=== PATIENT | female | born 1965 | race Caucasian/White ===

== ENCOUNTER 2020-09-10 11:50 | Emergency (ER) | payer OTHER, SELFPAY ==
--- NOTE | ~2020-09-10 | XR_ITS ---
EXAMINATION: XR ankle LT min 3V DATE: 09/10/2020 13:57 INDICATION: Left ankle fracture status post reduction TECHNIQUE: Three views of the left ankle were obtained. COMPARISON: 1220 hours FINDINGS: The previously described fractures of the distal tibia and fibula have been reduced. Alignm ent is near anatomic. There are approximately 3 mm of posterior displacement of the distal fibular fr acture fragment. A posterior splint has been applied. IMPRESSION: 1. Reduced and splinted fractures of the distal tibia and fibula in near-anatomic alignment. Reviewed, dictated and finalized at location A. IMPRESSION: 1. Reduced and splinted fractures of the distal tibia and fibula in near-anatom ic alignment.
--- NOTE | ~2020-09-10 | XR_ITS ---
EXAMINATION: XR ankle LT 2V DATE: 09/10/2020 12:19 INDICATION: Left ankle pain, initial encounter TECHNIQUE: Two views of the left ankle are obtained.. COMPARISON: None. FINDINGS: There is an acute, traumatic, closed, oblique fracture of the distal fibula which extends t o the level of the tibial plafond. There is an acute, traumatic, closed, transverse fracture of the m edial malleolus at the level of the tibial plafond. The distal fractures are laterally subluxed with respect to the tibia and fibula. Soft tissue swelling surrounds the fractures. IMPRESSION: 1. Acute fracture/subluxation of the distal fibula and medial malleolus. Reviewed, dictated and finalized at location A.
[2020-09-10 11:52] VITALS: PULSE 55; RESP 14; TEMP 36.8; O2SAT 98
--- NOTE | 2020-09-10 12:09 | ED.GENADULT ---
HPI - General Adult General Chief complaint: Extremity Injury, Lower Stated complaint: ankle deformity Time Seen by Provider: 09/10/20 11:54 Source: patient Mode of arrival: EMS Limitations: no limitations History of Present Illness HPI narrative: Patient presents for evaluation of left ankle pain. She indicates she fell down a few steps on her deck just prior to arrival when she missed a step. She denied her head or have loss of consciousness. No vomiting since episode. Not on blood thinners. She reports pain in the left ankle and has been unable to bear weight secondary to pain. She was brought in by EMS for further evaluation. She states that her pain is 20 on a scale of 1-10. She reports some tingling in all digits of the left foot but states that her sensation is intact. She was given morphine in route. Reports some nausea secondary to pain. Denies any other complaints whatsoever. Related Data Home Medications Medication Instructions Recorded Confirmed ergocalciferol (vitamin D2) 50 mcg 50 mcg PO DAILY 06/30/20 06/30/20 (2,000 unit) tablet Allergies Allergy/AdvReac Type Severity Reaction Status Date / Time No Known Allergies Allergy Unknown Verified 09/10/20 12:17 Review of Systems Review of Systems: Narrative: CONSTITUTIONAL: Denies fever, chills, or sweats. EYES: Denies visual changes, redness, or discharge. ENT: Denies rhinorrhea, congestion, sore throat, or otalgia. CARDIOVASCULAR: Denies chest pain, palpitations, or edema. RESPIRATORY: Denies cough or dyspnea. GASTROINTESTINAL: Denies abdominal pain, nausea, vomiting, or diarrhea. GENITOURINARY: Denies dysuria or hematuria. SKIN: Denies rash or itching. MUSCULOSKELETAL:Reports left ankle pain. Denies back pain or myalgia. NEUROLOGIC: Denies headache, numbness, dizziness, or weakness. PSYCHIATRIC: Denies anxiety or depression. [facility] Past Medical History Medical History (Updated 09/10/20 @ 14:18 by Tanner Flannery, RAFIA, ) Internal hemorrhoids Normal colonoscopy 2.05.06 internal hemmies/ diverticulosis Surgical History Surgical History History of appendectomy History of cholecystectomy Family History Family History Mother Diabetes mellitus Father Hypertension, Onset Age: 46 Family history of cardiovascular disease, Onset Age: 46 Other Family history of hypercholesterolemia Social History Social History (Updated 09/10/20 @ 12:10 by Tanner Flannery [facility], ) Smoking status: Never smoker Alcohol intake: current Alcohol use details: socially Substance use: never Living arrangements: with family Gender identity (if verbalized by the patient): Female Sexual Orientation (if Verbalized by the Patient): Straight or Heterosexual Spiritual care concerns: No Exam Narrative: Exam Narrative: GENERAL: Well-appearing, well-nourished, and in no acute distress. HEAD: Normocephalic, atraumatic. EYES: PERRLA and EOMI. ENT: Nares clear, no rhinorrhea or epistaxis. Mucous membranes moist. Oropharynx without tonsillar hypertrophy exudate or other lesions. Bilateral TMs pearly chang nonbulging NECK: Supple. No adenopathy or masses. No carotid bruits or JVD CHEST: Clear to auscultation. No respiratory distress. No wheezes rales or rhonchi HEART: Regular rate and rhythm. No murmur heard. Normal peripheral pulses. ABDOMEN: Soft, nontender, nondistended, normal active bowel sounds. EXTREMITIES: Swelling over left medial malleolus with deformity present. Tenderness noted circumferentially to the left ankle. Decreased dorsi and plantarflexion of the left foot. Sensation intact SKIN: Abrasion noted over left medial malleolus. Skin warm, dry, no rash. NEURO: No focal deficits. Alert and oriented x3. PSYCH: Normal mood and affect. Course Course Emergency Course: This is a 54 yr old femal
[2020-09-10] MEDS: ONDANSETRON HCL ODT 4 MG TABLET PO (12:16)
[2020-09-10] MEDS: oxyCODONE/ACETAMINOPHEN (*CRX) 5-325 MG TABLET 2 TABLET PO (12:16)
[2020-09-10 13:15] VITALS: BP 120/80; PULSE 66; RESP 15; O2SAT 95
[2020-09-10] MEDS: fentaNYL CITRATE INJ (*CRX) 100 MCG/2 ML VIAL 75 MCG IV PUSH (13:17)
[2020-09-10 14:36] VITALS: BP 124/63; PULSE 71; RESP 16; O2SAT 97
== END 2020-09-10 14:36 | disposition home or self-care (01) ==
PROVIDERS: Emergency Provider Nurse Practitioner; PCP Family Medicine
DX: S82.832A Other fracture of upper and lower end of left fibula, initial encounter for closed fracture (principal); S82.52XA Displaced fracture of medial malleolus of left tibia, initial encounter for closed fracture; W10.9XXA Fall (on) (from) unspecified stairs and steps, initial encounter
CPT/HCPCS: 27752; 27810; 73600; 73610; 96374; 99285; A9270; J3010

== ENCOUNTER → 2020-09-16 05:17 | Outpatient (CLI) | payer OTHER, SELFPAY ==
[2020-09-16 19:22] LABS: SARS-CoV-2 RNA PCR Negative
== END ==
PROVIDERS: PCP Family Medicine; Visit Provider Orthopaedic Surgery
DX: Z01.812 Encounter for preprocedural laboratory examination (principal); Z20.822 Contact with and (suspected) exposure to COVID-19
CPT/HCPCS: C9803; U0003; U0005

== ENCOUNTER 2020-09-16 09:28 | Outpatient (CLI) | payer OTHER, SELFPAY ==
--- NOTE | 2020-09-16 09:31 | ECG_ITS ---
Measurements Intervals [place] Rate: 89 P: 58 HI: 160 QRS: 22 QRSD: 69 T: 57 QT: 328 QTc: 401 Interpretive Statements SINUS RHYTHM LOW QRS VOLTAGE IN PRECORDIAL LEADS BORDERLINE T WAVE ABNORMALITY- ANTERIOR LEADS BASELINE ARTIFACT- II, III, AVF, V4-V6 BORDERLINE ECG Electronically Signed On 09-16-2020 9:45:29 CDT by Armin Steve D.O.
[2020-09-16 10:12] LABS: Anion Gap 7 mmol/L (8-16); Blood Urea Nitrogen 21 mg/dL (7-17); Calcium 10.1 mg/dL (8.4-10.2); Carbon Dioxide 29 mmol/L (22-30); Chloride 105 mmol/L (98-107); Estimated Glomerular Filt Rate > 60; Glucose 124 mg/dL (65-105); Potassium 4.6 mmol/L (3.4-5.0); Sodium 141 mmol/L (137-145)
== END 2020-09-16 09:29 | disposition home or self-care (01) ==
PROVIDERS: Anesthesiology; PCP Family Medicine; Visit Provider Orthopaedic Surgery
DX: Z01.818 Encounter for other preprocedural examination (principal); E78.2 Mixed hyperlipidemia; I10 Essential (primary) hypertension
CPT/HCPCS: 36415; 80048; 93005

== ENCOUNTER 2020-09-19 01:33 | Day surgery (SDC) | payer OTHER, SELFPAY ==
[2020-09-12 12:24] VITALS: BMI 25.0
[2020-09-19] VITALS (11 sets, daily range): BP systolic 133–168; BP diastolic 73–96; PULSE 70–89; RESP 11–20; TEMP 36.4–36.6; O2SAT 93–100
--- NOTE | ~2020-09-19 | XR_ITS ---
EXAMINATION: XR surgery orthopedic DATE: 09/19/2020 12:35 INDICATION: ORIF left ankle fracture TECHNIQUE: 3 fluoroscopic spot images of the left ankle were obtained during procedure performed by Bryanna Joy. Radiologist was not present for the imaging or procedure. The amount of fluoroscopy time used during this procedure was 0.1 minutes. COMPARISON: 09/10/2020 FINDINGS: Interval open reduction and internal fixation of the previous noted medial and lateral malleolar frac ture at the left ankle which is now in near-anatomic alignment with a congruent ankle mortise. The fi bular fractures fixed with an anterior to posteriorly directed interfragmentary screw and lateral judie te and screw fixation. The medial malleolar fractures fixed with a pair of cannulated lag screws. The medial malleolar fracture is mildly comminuted with a small fracture fragment along the anterior mar gin of the fracture which is not included within the fixation. Joint spaces at the left ankle and vis ualized hindfoot appear relatively preserved. IMPRESSION: 1. Near-anatomic alignment post open reduction and internal fixation of a left ankle bimalleolar frac ture. See procedure note for further detail. Reviewed, dictated and finalized at location B. IMPRESSION: 1. Near-anatomic alignment post open reduction and internal fixation of a left ankle bimalleolar fracture. See procedure note for further detail.
--- NOTE | 2020-09-19 07:01 | WPDHPUPDATE1 ---
History and Physical Update Update Date/Time: 09/19/20 07:01 History and Physical has been reviewed, including an updated exam of the patient. There are NO changes in the patient's condition. Covid test negative. Risks, benefits, and alternatives have been discussed and questions answered. Patient agrees to proceed with procedure.
--- NOTE | 2020-09-19 07:41 | WPDANESEPP ---
Anes - Eval Pre Procedure Procedure: Operation Date: 09/19/20 11:30 Proposed Procedures p Open Reduction Internal Fixation Left Ankle Fracture - Paulo Joy MD Date/Time: 09/19/20 07:41 Pre Op Diagnosis: left ankle fx Patient Data Age: 54 Gender: F Height: 1.57 m Weight: 62 kg Allergies Allergy/AdvReac Type Severity Reaction Status Date / Time No Known Allergies Allergy Unknown Verified 09/12/20 12:21 Home Medications Medication Instructions Recorded Confirmed Type levothyroxine 88 mcg tablet 88 mcg PO DAILY #90 tablet 03/21/20 09/12/20 Rx atorvastatin 10 mg tablet 10 mg PO DAILY #90 tablet 06/30/20 09/12/20 Rx cholecalciferol (vitamin D3) 2,000 mg PO DAILY 09/12/20 09/12/20 History metformin 1,000 mg PO DAILY 09/12/20 09/12/20 History metoprolol succinate 50 mg PO DAILY 09/12/20 09/12/20 History oxycodone-acetaminophen 5 mg-325 1 - 2 tablet PO Q6H PRN #20 tablet 09/12/20 09/12/20 Rx mg tablet Patient hx anesthesia problems: none Family hx anesthesia problems: none PMFSH Past Medical History Medical History Anxiety Claustrophobia High cholesterol Hypertension Internal hemorrhoids Normal colonoscopy 2.11.20 internal hemmies/ diverticulosis Trimalleolar fracture of left ankle Wears glasses Surgical History Surgical History History of appendectomy History of cholecystectomy Family History Family History Mother Diabetes mellitus Father Hypertension, Onset Age: 46 Family history of cardiovascular disease, Onset Age: 46 Other Arthritis Asthma Family history of hypercholesterolemia Heart disease Social History Social History Smoking status: Never smoker Alcohol intake: current Alcohol use details: 3-4 DRINKS/MONTH Substance use: never Substance use type: does not use Living arrangements: with family Gender identity (if verbalized by the patient): Female Spiritual care concerns: No Exam Day of Procedure 09/19/20 07:41
[2020-09-19] MEDS: LACTATED RINGERS 1,000 ML 30 ML IV CONT ×2 (10:20→14:19)
[2020-09-19] MEDS: KETOROLAC 15 MG/ML VIAL (*BKC) IV PUSH (10:26)
[2020-09-19 10:28] LABS: Glucose Point of Care 144 (65-105)
--- NOTE | 2020-09-19 11:19 | P.PNAN_ITS ---
Anes - Eval Final PreProcedure Day of Procedure 09/19/20 11:19 Patient weight: normal Heart: regular rate and rhythm Lungs: clear to auscultation Airway: Mallampati scale class III Neurological: alert and oriented Last oral intake: >/= 8 hours ASA classification: II Emergent: no Anesthetic plan: proceed Anesthesia type and monitoring: general LMA and standard monitoring Informed Consent: The patient's anesthetic plan and its attendant risks and b enefits were discussed with the patient/family/POA. Questions were solicited and answers provided to the satisfaction of the patient/family/POA.
[2020-09-19] MEDS: ceFAZolin 2 GM/D5W 50 ML 2 GM/50 ML BAG IVPB (11:28)
[2020-09-19] MEDS: BUPIVACAINE/EPINEPHRINE 0.5% 30 ML VIAL INFILTRATE (12:22)
[2020-09-19 13:13] LABS: Glucose Point of Care 135 (65-105)
--- NOTE | 2020-09-19 13:31 | PM.PROC ---
Procedure Note - Detailed Date of procedure: 09/19/20 Pre-op diagnosis: left ankle fx Left ankle trimalleolar fracture Post-op diagnosis: same Procedure performed: Open reduction internal fixation left ankle trimalleolar fracture. Description of procedure: Operative indications: Patient is a 54 year-old woman who sustained an injury to the ankle. Radiographs show distal fibular fracture with displacement. Medial malleolus fracture with displacement and posterior malleolus fracture. Widening of the ankle mortise noted. Patient presents for operative treatment. Full discussion of the risks, benefits and alternatives of surgery was had with the patient. Questions answered. Patient verbalizes understanding and wishes to proceed. What was done: After informed consent, the operative extremity was marked in the preoperative holding area. Patient received intravenous antibiotics. Patient was then taken to the operating room and underwent general anesthesia by the anesthesia team. Positioned supine on the operating room table with a soft bump under the ipsilateral hip. A time-out was performed confirming the patient, site of the surgery, operative plan. Lower extremity then prepped and draped in the usual sterile surgical fashion using ChloraPrep skin solution. Foot and ankle exsanguinated and a thigh tourniquet inflated to 250 mmHg. Longitudinal incision made over the lateral ankle distal fibula with a 15 blade knife. Hemostasis controlled with electrocautery. Full-thickness soft tissue flaps developed and the fascia was incised in line with the skin incision. Fracture identified and cleared with a dental pick, irrigation and rongeur. Fracture reduced and held with bone-holding clamp. Image intensification confirmed reduction of the fracture and the ankle mortise. Fixation achieved with a 2.7 millimeter fully-threaded cortical screw placed in lag technique across the fracture. Neutralization with a lateral fibula plate with unicortical locking screws distal to fracture and bicortical screws proximal to the fracture. Good alignment and stability of the fracture noted. Image intensification used to confirm reduction of the fracture and placement of the hardware. Medial side then addressed. Longitudinal incision made with a 15 blade knife over the medial malleolus fracture. Hemostasis controlled with electrocautery. Fascia incised in line with skin incision. Periosteum cleared from the medial malleolus fracture. Medial side of the joint inspected and noted to have mild amount of trauma to the chondral surface. Thorough irrigation of the ankle joint and suctioned out. Fracture reduced and provisionally pinned. Fixation achieved with 4.0 mm partially threaded cancellous screws x2 placed in cannulated screw fashion. Image intensification confirmed reduction of the fracture and placement of the hardware. Stress of the ankle performed with good stability of the ankle mortise in all directions. Posterior malleolus noted to be reduced and stable. Wounds thoroughly irrigated with antibiotic solution. Fascia repaired with 00 Vicryl interrupted suture. Subcutaneous tissue repaired with 000 Monocryl interrupted suture and Skin approximated with jason. Sterile dressings applied followed by bulky dressing and splint. Patient awoken from anesthesia, extubated and taken to the recovery room in stable condition. All sponge, needle and instrument counts correct at the end of the case. Palpable dorsalis pedis pulse noted prior to dressing. Implants: Arthrex distal fibula locking fracture plate with screws, 4.0 mm cannulated screw x2 medially Anesthesia: GLMA Surgeon: Paulo Joy MD Parking Enforcement Technician: 1st marketing operations assistant Estimated blood loss (mL): 10 Tourniquet time (min): 60 Drains: No Packing: No Pathology: none sent Complications: None Condition: stable Disposition: PACU
--- NOTE | 2020-09-19 13:41 | SUR.PHASEI ---
1340- PEG drain emptied of 50 ml of bloody drainage.
[2020-09-19] MEDS: fentaNYL CITRATE INJ (*CRX) 100 MCG/2 ML VIAL 25 MCG IV PUSH ×5 (13:46→15:21)
--- NOTE | 2020-09-19 14:31 | SUR.PHASEI ---
1430- PEG drain inforation charted on wrong patient.
[2020-09-19] MEDS: oxyCODONE HCL (*CRX) 5 MG TAB IR PO (15:39)
== END 2020-09-19 16:15 | disposition home or self-care (01) ==
PROVIDERS: PCP Family Medicine; Visit Provider Orthopaedic Surgery
PROC: (CPT 27822; principal; 2020-09-19 11:30)
DX: S82.852A Displaced trimalleolar fracture of left lower leg, initial encounter for closed fracture (principal); W10.9XXA Fall (on) (from) unspecified stairs and steps, initial encounter; F41.9 Anxiety disorder, unspecified; E78.00 Pure hypercholesterolemia, unspecified; I10 Essential (primary) hypertension; Z79.84 Long term (current) use of oral hypoglycemic drugs; E03.9 Hypothyroidism, unspecified
CPT/HCPCS: 27822; 36415; 80048; 93005; A9270; C1713; C1769; C9803; J0690; J1100; J1885; J2250; J2405; J2704; J3010; J7120; U0003; U0005

== ENCOUNTER 2023-11-08 08:25 | Outpatient (CLI) | payer OTHER, SELFPAY ==
--- NOTE | ~2023-11-08 | DEXA_ITS ---
Bone Density Report Name: SHANON UGALDE Age: 58 Sex: Female Ethnicity: White Date of : 1965 Indication: postmenopausal; screening for osteoporosis; Referring Provider: BRYN MUSTAFA Study: Bone densitometry was performed. Exam Date: November 08, 2023 Accession number: [id number] Bone Density: Region BMD T-score Z-score Classification AP Spine(L1-L4) 0.936 -1.0 0.4 Normal Femoral Neck (Left) 0.745 -0.9 0.3 Normal Total Hip (Left) 0.902 -0.3 0.6 Normal Femoral Neck (Right) 0.737 -1.0 0.3 Normal Total Hip (Right) 0.883 -0.5 0.5 Normal Total Hip Mean 0.893 -0.4 0.6 Normal World Health Organization criteria for BMD impression classify patients as: Normal (T-score at or above -1.0), Osteopenia (T-score between -1.0 and -2.5), or Osteoporosis (T-score at or below -2.5). 10-year Fracture Risk: FRAX not reported because: All T-scores for Spine Total, Hip Total, Femoral Neck at or above -1.0 Clinical Information Provided by Patient: Has used the following medications: Vitamin D Patient maximum height was 62 Menopause Age: 48 No regular weight bearing exercise Does not regularly consume dairy products Drinks caffeinated beverages Onset of menses at age 11 Number of children 2 Impression: The patient has normal bone mass. Discussion: BONE DENSITY IS ABOVE THE MINIMUM DESIRABLE LEVEL AT ALL SKELETAL SITES TESTED. This patient?s bone mineral density is above the minimum desirable level (T-score -1.0 or better) at all sites measured. The patient should follow a healthful lifestyle (good nutrition with adequate calcium and vitamin D, and appropriate weight-bearing exercise). Follow-Up: Consider repeating this study in 5 years or sooner if there is some new clinical indication. Reported by: EARNESTINE on 11/08/2023 8:55:00 AM. Reviewed, dictated and finalized at location [facility] AYALA
== END 2023-11-08 08:26 | disposition home or self-care (01) ==
LOC: ANHIMG 08:29
PROVIDERS: PCP Family Medicine; Visit Provider Family Medicine
DX: Z13.820 Encounter for screening for osteoporosis (principal); Z78.0 Asymptomatic menopausal state
CPT/HCPCS: 77080